=== PATIENT | male | born 1955 | race Caucasian/White ===

== ENCOUNTER 2016-11-15 17:21 | Emergency (ER) | payer MEDICARE ==
--- NOTE | 2016-11-15 18:54 | RAD ---
EXAM: Chest,2 Views CLINICAL INDICATION: 61-year-old male with generalized body aches. TECHNIQUE: Two-view, PA and lateral projections of the chest were obtained. COMPARISON: 11/28/2014. FINDINGS: Stable cardiac and mediastinal silhouette. Heart size is normal. Tortuous atherosclerotic thoracic aorta. Median sternotomy wires. Lungs are clear without focal opacity, pneumothorax or pleural effusions. The visualized bones are within normal limits. IMPRESSION: No acute cardiopulmonary abnormalities. Electronically signed by: Vanessa Peguero MD 11/15/2016 6:53 PM CDT
[2016-11-15 19:21] VITALS: TEMP 97.8; O2SAT 95
[2016-11-15] MEDS ORDERED: SODIUM CHLORIDE 0.9% 1000ML 1,000 ML IVS ONE (19:45)
[2016-11-15] MEDS ORDERED: KETOROLAC TROMETHAMINE INJ 30 MG/ML VIAL IM ONE (19:45)
--- NOTE | 2016-11-15 20:01 | ED.PDOC ---
History of Present Illness - General Chief Complaint: Chest Pain/ID Stated Complaint: Mid sternal chest pain which is worse when coughin Time Seen by Provider: 11/15/16 18:07 Source: patient Exam Limitations: no limitations - History of Present Illness Initial Comments: the patient is a 61-year-old male presenting to the emergency room secondary to a feeling of generalized body aches and malaise. No vomiting but mild nausea. Vague diffuse chest discomfort. 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 Palpitations. No shortness of breath. Yesterday he did have some sneezing and a mild sore throat. He did have a mild headache as well. No syncope or near syncope. No palpitations. No swelling. Timing/Duration: unsure Severity: moderate Improving Factors: nothing Worsening Factors: nothing Associated Symptoms: malaise Allergies/Adverse Reactions: Allergies Morphine Allergy (Mild, Verified 11/28/14 10:52) Rash Home Medications: Ambulatory Orders HYDROcodone 10MG/APAP 325MG [[place] 10/325] 10 mg PO QID PRN 03/08/13 Cyclobenzaprine HCl [Flexeril] 10 mg PO TID 11/28/14 Alprazolam [Xanax] 1 mg PO TID 06/08/16 Famotidine 20 mg PO DAILY #30 tab 06/08/16 Fluoxetine HCl [PROzac] 20 mg PO DAILY 06/08/16 Lisinopril/Hctz 20-12.5 mg [Zestoretic 20/12.5] 1 ea PO DAILY 06/08/16 Metoprolol Succinate [Toprol XL] 50 mg PO DAILY 06/08/16 Pantoprazole Sodium 40 mg PO DAILY 06/08/16 Pravastatin Sodium 40 mg PO DAILY 06/08/16 Sucralfate Tab [Carafate Tab] 1 gm PO QID #120 tab 06/08/16 Minocycline HCl 100 mg PO DAILY 11/15/16 Topiramate 50 mg PO QID 11/15/16 amLODIPine BESYLATE [Norvasc] 5 mg PO DAILY 11/15/16 Review of Systems - Review of Systems Constitutional: States: malaise EENTM: States: nose congestion, throat pain Respiratory: States: cough - mild Cardiology: States: chest pain - iffuse Gastrointestinal/Abdominal: States: nausea - mild Genitourinary: States: no symptoms reported Musculoskeletal: States: other - generalized body aches Skin: States: no symptoms reported Neurological: States: anxiety Endocrine: States: no symptoms reported All other Systems: No Change from Baseline Past Medical History (General) - Patient Medical History Hx Seizures: No Hx Stroke: No Hx Dementia: No Hx Asthma: No Hx of COPD: Yes Hx Cardiac Disorders: Yes - Coronary bypass surgery 1 yr ago (quadruple) Hx Congestive Heart Failure: Yes Hx Pacemaker: No Hx Hypertension: Yes Hx Diabetes: No Hx Gastroesophageal Reflux: Yes Hx Cancer: No Hx Hepatitis C: Yes Hx MRSA: Yes - Vaccination History Hx Tetanus, Diphtheria Vaccination: No Hx Influenza Vaccination: No Hx Pneumococcal Vaccination: No - Social History Hx Tobacco Use: No Hx Chewing Tobacco Use: No Hx Alcohol Use: No Hx Substance Use: No Hx Substance Use Treatment: No Hx Depression: No Feels Threatened In Home Enviroment: No Feels Threatened In a Relationship: No Hx Physical Abuse: No Hx Emotional Abuse: No Hx Suspected Abuse: No - Female History Patient : No Family Medical History - Family History Father Family History: No Known Living Status: Cause of : Heart Attack Hx Family Congestive Heart Failure: Yes Hx Family Hypertension: Yes Hx Cardiac Disease: Yes Mother Living Status: Cause of : Cancer Hx Family Asthma: No Hx Family Congestive Heart Failure: No Hx Family Hypertension: Yes Hx Family Stroke: No Hx Cardiac Disease: No Hx Family Diabetes: No Hx Family Cancer: Yes Physical Exam - Physical Exam General Appearance: Alert, Anxious, No apparent distress Eye Exam: bilateral normal Ears, Nose, Throat: normal pharynx, nasal congestion - nares are red with clear rhinorrhea Neck: non-tender, full range of motion, supple Respiratory: lungs clear, normal breath sounds, no respiratory distress, no accessory muscle use, other - he does have chest wall discomfort palpation which is apparently not entirely new Cardiovascular/Chest: normal peripheral pulses, regular rate, rhythm, no edema Peripheral Pulses: radial,right: 2+, radial,left: 2+, dorsalis pedis,right: 2+, dorsalis pedis,left: 2+ Gastrointestinal/Abdominal: non tender, soft Rectal Exam: deferred Back Exam: normal inspection, no CVA tenderness, no vertebral tenderness Extremity: normal range of motion, non-tender, normal inspection, no pedal edema , normal capillary refill Neurologic: alert, normal mood/affect, oriented x 3 Skin Exam: normal color Comments: Vital Signs - 24 hr 11/15/16 19:15 Temperature 97.8 F Pulse Rate [L 54 L Arm] Respiratory 18 Rate Blood Pressure 118/76 [L Arm] O2 Sat by Pulse 95 Oximetry Progress - Progress Progress: 11/15/16 20:04 the patient is a 61-year-old male presenting with generalized myalgias. This is likely viral in origin. He has received a liter of IV fluids and a dose of Toradol here. He needs to keep well-hydrated. Additionally he needs to hold the minocycline and his cholesterol medication for the next 3-4 days. ER warnings were given. Lab work, EKG and chest x-ray are reassuring. He needs to follow up with his primary care doctor early next week. - Results/Orders Results/Orders: Laboratory Tests 11/15/16 11/15/16 11/15/16 17:40 17:40 17:40 WBC 9.4 RBC 4.85 Hgb 13.9 L Hct 41.0 L MCV 84.6 MCH 28.6 MCHC 33.9 RDW 15.1 H Plt Count 227 MPV 8.8 Absolute Neuts (auto) 6.20 Absolute Lymphs (auto) 2.30 Absolute Monos (auto) 0.50 Absolute Eos (auto) 0.30 Absolute Basos (auto) 0.00 Neutrophils % 65.7 Lymphocytes % 24.8 Monocytes % 5.8 Eosinophils % 3.4 Basophils % 0.3 PT 12.0 INR 1.060 PTT (SP) 32.4 Sodium 137 Potassium 3.7 Chloride 106 Carbon Dioxide 25 Anion Gap 9.7 L BUN 15 Creatinine 1.31 H BUN/Creatinine Ratio 11.5 Random Glucose 96 Serum Osmolality 274.5 L Calcium 8.8 Total Bilirubin 0.5 AST 24 ALT 22 Alkaline Phosphatase 83 Creatine Kinase 151 CK-MB (CK-2) 3.1 CK-MB (CK-2) % Not Reportable Troponin I < 0.02 B-Natriuretic Peptide 218.0 H* Serum Total Protein 7.3 Albumin 3.6 Globulin 3.7 H Albumin/Globulin Ratio 1.0 L Amylase 45 Lipase 27 Urine Color Urine Appearance Urine pH Ur Specific [place] Urine Protein Urine Glucose (UA) Urine Ketones Urine Blood Urine Nitrite Urine Bilirubin Urine Urobilinogen Ur Leukocyte Esterase Urine RBC Urine WBC Ur Epithelial Cells Urine Bacteria 11/15/16 19:00 WBC RBC Hgb Hct MCV MCH MCHC RDW Plt Count MPV Absolute Neuts (auto) Absolute Lymphs (auto) Absolute Monos (auto) Absolute Eos (auto) Absolute Basos (auto) Neutrophils % Lymphocytes % Monocytes % Eosinophils % Basophils % PT INR PTT (SP) Sodium Potassium Chloride Carbon Dioxide Anion Gap BUN Creatinine BUN/Creatinine Ratio Random Glucose Serum Osmolality Calcium Total Bilirubin AST ALT Alkaline Phosphatase Creatine Kinase CK-MB (CK-2) CK-MB (CK-2) % Troponin I B-Natriuretic Peptide Serum Total Protein Albumin Globulin Albumin/Globulin Ratio Amylase Lipase Urine Color Yellow Urine Appearance Clear Urine pH 6.5 Ur Specific [place] 1.015 Urine Protein Negative Urine Glucose (UA) Negative Urine Ketones Negative Urine Blood Negative Urine Nitrite Negative Urine Bilirubin Negative Urine Urobilinogen 0.2 Ur Leukocyte Esterase Negative Urine RBC 0-1 Urine WBC 0-1 Ur Epithelial Cells 0 Urine Bacteria 0 EKG shows sinus bradycardia. Left anterior fascicular block. T-wave inversion in lead 3 only. No other acute ST segment changes concerning for ischemia. No prolongation of the QT interval. Chest x-ray shows no acute pathology. No new infiltrates. No pneumothorax. No fluid overload. flu was negative Departure - Departure Clinical Impression: Acute viral syndrome Disposition: Discharge to Home or Self Care Condition: Fair Departure Forms: ED Discharge - Pt. Copy, Patient Portal Self Enrollment Instructions: DI for Viral Syndrome Diet: low salt diet Activity: increase activity as tolerated Referrals: Esteban Lazo MD [Primary Care Provider] - 1-2 Weeks Home Medications: Ambulatory Orders HYDROcodone 10MG/APAP 325MG [[place] 10/325] 10 mg PO QID PRN 03/08/13 Cyclobenzaprine HCl [Flexeril] 10 mg PO TID 11/28/14 Alprazolam [Xanax] 1 mg PO TID 06/08/16 Famotidine 20 mg PO DAILY #30 tab 06/08/16 Fluoxetine HCl [PROzac] 20 mg PO DAILY 06/08/16 Lisinopril/Hctz 20-12.5 mg [Zestoretic 20/12.5] 1 ea PO DAILY 06/08/16 Metoprolol Succinate [Toprol XL] 50 mg PO DAILY 06/08/16 Pantoprazole Sodium 40 mg PO DAILY 06/08/16 Pravastatin Sodium 40 mg PO DAILY 06/08/16 Sucralfate Tab [Carafate Tab] 1 gm PO QID #120 tab 06/08/16 Minocycline HCl 100 mg PO DAILY 11/15/16 Topiramate 50 mg PO QID 11/15/16 amLODIPine BESYLATE [Norvasc] 5 mg PO DAILY 11/15/16 Additional Instructions: the patient is a 61-year-old male presenting with generalized myalgias. This is likely viral in origin. He has received a liter of IV fluids and a dose of Toradol here. He needs to keep well-hydrated. Additionally he needs to hold the minocycline and his cholesterol medication for the next 3-4 days. ER warnings were given. Lab work, EKG and chest x-ray are reassuring. He needs to follow up with his primary care doctor early next week.
[2016-11-15 21:13] VITALS: BP 130/66
== END 2016-11-15 21:14 | disposition home or self-care (01) ==
LOC: ER 17:21
DX: B34.9 Viral infection, unspecified (principal); J44.9 Chronic obstructive pulmonary disease, unspecified; I11.0 Hypertensive heart disease with heart failure; I50.9 Heart failure, unspecified; K21.9 Gastro-esophageal reflux disease without esophagitis; B19.20 Unspecified viral hepatitis C without hepatic coma; Z95.1 Presence of aortocoronary bypass graft; Z86.14 Personal history of Methicillin resistant Staphylococcus aureus infection; Z79.899 Other long term (current) drug therapy; Z88.6 Allergy status to analgesic agent
CPT/HCPCS: 36415; 71020; 80053; 81001; 82150; 82550; 82553; 83690; 83880; 84484; 85025; 85610; 85730; 87502; 93005; J1885; J7030

== ENCOUNTER → 2019-05-10 | Outpatient (CLI) | payer MEDICARE | LOC: LAB.O 09:32 | PROVIDERS: ATTEND General Practice | DX: I25.10 Atherosclerotic heart disease of native coronary artery without angina pectoris (principal); N40.1 Benign prostatic hyperplasia with lower urinary tract symptoms; E11.9 Type 2 diabetes mellitus without complications ==

== ENCOUNTER → 2020-04-03 | Outpatient (CLI) | payer OTHER ==
--- NOTE | 2020-04-04 10:21 | MRI ---
EXAM DESCRIPTION: MRI left knee CLINICAL HISTORY: Internal derangement. Knee pain and swelling COMPARISON: None. TECHNIQUE: Multiplanar, multisequence MR images of the left knee FINDINGS: Complete tear posterior horn medial meniscus in close proximity to the tibial root. Gap between a small root fragment and the remainder of the posterior horn about 8 mm. Mild subluxation of the body of the meniscus. Medial femorotibial grade 2 and grade 3 chondrosis diffusely mostly affecting the weightbearing femoral condyle. No subchondral marrow abnormality No lateral meniscal tear. Grade 2 lateral femorotibial chondrosis. Small cyst subjacent to the anterior root attachment. No root detachment Grade 3 and grade 4 chondrosis over the medial facet and apex of the upper two thirds of the patella. Grade 3 and grade 4 chondrosis in the upper lateral facet with subchondral marrow edema over approximately 7 x 12 mm. Femoral trochlear grade 3 chondrosis at the apex with extension over the majority of the medial trochlea and a portion of the lateral trochlea. No full-thickness defect or subchondral marrow abnormality ACL, PCL, MCL and fibular collateral ligaments are intact Biceps femoris, popliteus and iliotibial band tendons are normal. Patellar and quadriceps tendons and tendons of the posterior medial knee are intact Large joint effusion and small Blake's cyst. Villous degenerative synovitis in the suprapatellar bursa. 1 cm nodular synovial thickening in the anterior lateral intercondylar notch. 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
== END ==
LOC: LAB.O 13:59
PROVIDERS: ATTEND General Practice
DX: S83.242A Other tear of medial meniscus, current injury, left knee, initial encounter (principal); M22.42 Chondromalacia patellae, left knee; M65.862 Other synovitis and tenosynovitis, left lower leg; M25.462 Effusion, left knee; R53.83 Other fatigue; E11.9 Type 2 diabetes mellitus without complications; I25.10 Atherosclerotic heart disease of native coronary artery without angina pectoris; I50.9 Heart failure, unspecified; E66.01 Morbid (severe) obesity due to excess calories